=== PATIENT | female | born 1995 | race African-American/Black ===

== ENCOUNTER 2024-07-15 11:46 | Outpatient (REF) | payer OTHER, SELFPAY ==
--- NOTE | ~2024-07-15 | XR_ITS ---
EXAMINATION: XR KNEE, RIGHT CLINICAL INFORMATION: M25.561 - Pain in right knee COMPARISON: None available. TECHNIQUE: Three views of the right knee. FINDINGS: The AP projection is somewhat obliqued. No fracture or joint effusion. Alignment is anatomic. Joint spaces are maintained. No abnormal soft tissue calcification. XR/XR knee RT 3V IMPRESSION: Normal right knee. Electronically signed by: Doyle Bravo MD 07/16/2024 02:07 PM [facility]
== END 2024-07-15 11:47 | disposition home or self-care (01) ==
LOC: HO.HOSX 11:46
PROVIDERS: Visit Provider Orthopaedic Surgery
DX: M25.561 Pain in right knee (principal)
CPT/HCPCS: 73562

== ENCOUNTER 2024-07-15 12:53 | Outpatient (AMB) | payer OTHER, SELFPAY ==
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
[2024-07-15 13:24] VITALS: BMI 32.1
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
== END 2024-07-15 13:44 | disposition home or self-care (01) ==
PROVIDERS: Visit Provider Orthopaedic Surgery
DX: S83.241A Other tear of medial meniscus, current injury, right knee, initial encounter (principal)
CPT/HCPCS: 99203; G2211

== ENCOUNTER → 2024-07-30 08:32 | Outpatient (BNV) | payer OTHER, SELFPAY | PROVIDERS: PCP Physician Assistant; Visit Provider Radiology Diagnostic Radiology | DX: M25.461 Effusion, right knee (principal) | CPT/HCPCS: 73721 ==

== ENCOUNTER 2024-07-30 09:02 | Outpatient (REF) | payer OTHER, SELFPAY ==
--- NOTE | ~2024-07-30 | MR_ITS ---
CLINICAL HISTORY: S83.241A - Other tear of medial meniscus, current injury, right knee, in... MR right knee without gadolinium Comparison: DX/SR - XR KNEE RT 3V - 07/15/24 13:16 EST Findings: No acute fracture or pathologic bone lesion. Lateral ventral trochlear prominence. Lateral patellar subluxation. Mild articular cartilage loss overlying the lateral patellar facet inferiorly. Small knee joint effusion. Moderate edema within the superolateral aspect of the infrapatellar fat pad. Anterior and posterior cruciate ligaments are intact. Collateral ligaments are intact. No disruption of the patellar retinacula or iliotibial band. Quadriceps, patellar, popliteus, and flexor tendons are intact. Mild ill-defined T2 signal elevation at the posterior meniscocapsular junction of the posterior horn medial meniscus. Lateral meniscus is intact. IMPRESSION: 1. Findings consistent with lateral patellofemoral friction syndrome in the appropriate clinical setting. 2. No internal derangement. 3. Small knee joint effusion. This document has been electronically signed by: Arleen Frost MD on 07/30/2024 15:49:06
--- OUTSIDE RECORDS SUMMARY | 2024-07-30 10:25 | XMS_ITS | Clinical Summary ---
Author Organization [facility] Address [address] [place] [address] Care Team Providers Care Supervisor Kennel Name Role Phone Castillo Olivier Primary Care Provider [phone] Source Comments PLEASE NOTE, if this patient is a minor, it may be UNLAWFUL to discuss sensitive information that is contained in these records (such as FAMILY PLANNING, MENTAL HEALTH or SUBSTANCE ABUSE) with the minor patient's parent or other person without the patient's specific authorization.[facility] Allergies Active Allergy Reactions Criticality Noted Date Comments Bee Pollen Hives High 02/01/2021 Cats 10/04/2022 Dogs 10/04/2022 Dust Mites 10/04/2022 Grass Pollen 10/04/2022 Mold 10/04/2022 Sea Ronceverte 10/04/2022 Medications diphenhydrAMINE HCL (BENADRYL) 25 mg capsuleIndicatio ns:Allergy, initial encounter Take 1 Capsule by mouth every 6 (six) hours as needed for allergies, anaphylaxis or itching 30 Capsule 1 1 Active cholecalciferol, vitamin D3, 50 mcg (2,000 unit) capsuleIndicatio ns:Low vitamin D level Take 1 Capsule by mouth once daily Start taking this once daily after finishing the 8 week course 90 Capsule 1 Active cholecalciferol, vitamin D3, (VITAMIN D3) 1,250 mcg (50,000 unit) capsuleIndicatio ns:Low vitamin D level TAKE 1 CAPSULE BY MOUTH ONE TIME PER WEEK FOR 8 DOSES 4 Capsule 1 Active TRELEGREG ELLIPTA 200-62.5-25 mcg dsdvIndications: Moderate persistent asthma without complication Take 1 Puff by mouth daily. 3 Active cetirizine (ZYRTEC) 10 mg tabletIndication s:Moderate persistent asthma without complication Take 1 Tablet by mouth 1 to 2 (one to two) times daily as needed for allergies or rhinitis 30 Tablet 1 3 Active famotidine (PEPCID) 20 mg tabletIndication s:Gastroesophage al reflux disease without esophagitis Take 1 Tablet by mouth 1 to 2 (one to two) times daily as needed for heartburn 30 Tablet 1 3 Active meloxicam (MOBIC) 15 mg tabletIndication s:Arthralgia, unspecified joint Take 1 Tablet by mouth 1 time each day 30 Tablet 3 3 Active Bifidobacterium infantis (ALIGN DAILY) 4 mg capsuleIndicatio ns:Other constipation Take 1 Capsule by mouth once daily 14 Capsule 4 Active psyllium seed, with dextrose, (METAMUCIL) powderIndication s:Other constipation Take 3 g of fiber by mouth once daily 368 g 4 Active albuterol-budeso nide 90-80 mcg/actuation HFAA Inhale into the lungs 4 Active methocarbamoL (ROBAXIN) 750 mg tabletIndication s:Chronic pain of both shoulders,Lumbar pain Take 1 Tablet by mouth 2 (two) times daily as needed for other reason (muscle spasm) 21 Tablet 4 Active albuterol HFA 90 mcg/actuation inhalerIndicatio ns:Moderate persistent asthma without complication,Mil d intermittent asthma without complication,All ergy, initial encounter Inhale 2 Puffs into the lungs every 4 to 6 (four to six) hours as needed for shortness of breath 1 Each 2 4 Active levocetirizine (XYZAL) 5 mg tabletIndication s:Moderate persistent asthma without complication,Mil d intermittent asthma without complication,All ergy, initial encounter Take 1 Tablet by mouth every evening 90 Tablet 2 4 Active montelukast (SINGULAIR) 10 mg tabletIndication s:Moderate persistent asthma without complication,Mil d intermittent asthma without complication,All ergy, initial encounter Take 1 Tablet by mouth nightly at bedtime 60 Tablet 1 4 Active EPINEPHrine (EPIPEN) 0.3 mg/0.3 mL pen injectorIndicati ons:Moderate persistent asthma without complication,Mil d intermittent asthma without complication,All ergy, initial encounter Inject 0.3 mL into the muscle as needed for anaphylaxis 1 Each 1 4 Active Active Problems Problem Noted Date Diagnosed Date Class 1 obesity 01/29/2024 Moderate persistent asthma without complication 03/31/2021 Resolved Problems Problem Noted Date Diagnosed Date Resolved Date Attention deficit 07/28/2015 07/25/2019 Overview (07/28/2015): [address]- Neuropsychological evaluation referred by [facility] center RUQ pain 05/26/2014 07/25/2019 Knee pain, bilateral 05/25/2014 020 Overview (10/04/2014): [facility] 06/17/14: Localized distal L quadriceps tendinosis at insertion site on the patella. Otherwise normal appearance to quadriceps tendon bilaterally. Normal sonographic appearance to patellar tendon. Small right effusion. - PT [facility]: Pt only showed up once in 2013 - Dr. [facility], recommended Glucosamine, referred to PT Finger injury 07/25/2019 Overview (10/31/2013): Old injury R 4th digital w/ bony deformity Encounters Date Type Department Care Team Description 06/12/2024 9:40 AM EST Office Visit [address] [phone] Castillo Olivier PA Routine adult health maintenance (Primary Dx); Moderate persistent asthma without complication; Class 1 obesity; Cervical cancer screening; Mild intermittent asthma without complication; Allergy, initial encounter 06/12/2024 Travel from Last 3 Months Immunizations Name Administration Dates Next Due DTAP (DAPTACEL),5 PERTUSSIS ANTIGENS ,10/29/1996,07/27/1995,05/09,02/20/1995 HEP B, PED/ADOL 10/29/1996,01/24/1995,1994 HPV, QUADRIVALENT 12/07/2009,08/09/2009,05/17/20 09 Hib (PRP-T) 10/29/1996, 6,05/09/1995,02/20 History Of Varicella 05/16/1997 INFLUENZA, SEASONAL, INJECTABLE 07/10/2016,08/03,07/12/2010 IPV 03/31/2000, 0,07/27/1995,05/09,02/20/1995 MENINGOCOCCAL VACCINE,CONJUG ATE (NON-INTERFACE) 08/03/2011 MMR (MMR II/Priorix) 02/29/2000,10/29/1996 Novel [id number], injectable 05/17/2009 PPD 07/10/2016,12/27/2012 TDAP 06/12/2024,03/14/2007 Td (adult), 5 Lf tetanus tox oid, preservative free 10/30/2013 Family History Medical History Relation Name Comments Asthma Brother Alcohol/Drug Abuse Father Asthma Maternal Aunt Diabetes Maternal Aunt Hypertension Maternal Aunt Vision Problems Maternal Aunt Alcohol/Drug Abuse Maternal Grandfather Alcohol/Drug Abuse Maternal Grandmother Arthritis Maternal Grandmother Cancer Maternal Grandmother Diabetes Maternal Grandmother Hypertension Maternal Grandmother Vision Problems Maternal Grandmother Alcohol/Drug Abuse Mother Depression Mother High Cholesterol Mother Asthma Sister Relation Name Status Comments Brother Father Maternal Aunt Maternal Grandfather Maternal Grandmother Mother Sister Social History Tobacco Use Types Packs/Day Years Used Date Smoking Tobacco: Never Smokeless Tobacco: Never Tobacco Cessation:Counseling Given: Not Answered Alcohol Use Standard Drinks/Week Comments Yes 0 (1 standard drink = 0.6 oz pur e alcohol) Social Connections Answer Date Recorded Connectedness 1 01/29/2024 Financial Resource Strain Answer Date R ecorded Financial Resource Strain 1 2023 Stress Answer Date Recorded Stress 1 01/29/2024 Physical Activity Answer Date Recorded Physical Activity 0 02/22/2019 Food Insecurity Answer Date Recorded Food 1 01/29/2024 Transportation Needs Answer Date Record ed Transportation 0 10/04/2022 Housing Stability Answer Date Recorded Housing 1 01/29/2024 Safety and Environment Answer Date Ravi rded Safety 0 10/04/2022 Utilities Answer Date Recorded Utilities 1 01/29/2024 Employment Answer Date Recorded Stress 0 09/19/2021 Comments No Sex and Gender Information Value Date Recorded Sex Assigned at Female 07/25/2019 7:39 AM PST Legal Sex Female 11:36 AM PDT Gender Identity Female 07/25/2019 7:39 AM PST Sexual Orientation Lesbian 03/31/2021 6: 13 AM PDT Sexual Orientation Straight 03/31/2021 6: 13 AM PDT Last Filed Vital Signs Vital Sign Reading Time Taken Comments Blood Pressure 120/76 06/12/2024 9:48 AM EST Pulse 68 06/12/2024 9:48 AM EST Temperature 37.2 ??C (99 ??F) 06/12/2024 9:48 AM EST Respiratory Rate 16 06/12/2024 9:48 AM EST Oxygen Saturation 97% 06/12/2024 9:48 AM EST Inhaled Oxygen Concentration - - Weight 86.5 kg (190 lb 11.2 oz) 06/12/2024 9:48 AM EST Height 162.6 cm (5' 4 ) 06/12/2024 9:48 AM EST Body Mass Index 32.73 06/12/2024 9:48 AM EST Plan of Treatment Upcoming Encounters Date Type Department Care Team (Late st Contact Info) Description 08/22/2024 2:00 PM EST Office Visit [facility] [address] [place] [phone] Jovanni Aparicio MD [address] [place] [address] Health Maintenance Due Date Last Done Comments HPV Screening 1994 Pap + HPV 1994 Imm-Pneumococcal (1 of 2 - PCV) 2013 Diabetes Screening 03/31/2024 03/31/2021, 0 07/25/2019, 07/25/2019, Additional history exists Cervical Cancer Screening 06/02/2024 Pap Smear 06/02/2024 06/02/2021 Alcohol and Drug Screen 07/02/2024 01/29/20 24, 10/04/2022, 10/04/2022, Additional history exists Depression Annual Screen 07/02/2024 024, 07/28/2015, 05/25/2014 (Declined) [id number] ( season) 2024 Postponed from 03/02/2024 (Patient postponement) Imm-Influenza (#1) 2024 07/10/2016, 0 07/28/2015, 05/25/2014 (Declined), Additional history exists Postponed from 03/02/2024 (Patient postponement) Relationship Safety Screening/Counseling 01/28/2025 01/29/2024, 10/04/2022, 10/04/2022, Additional history exists Annual Preventive Care Visit 06/12/2025 06/12/2024, 10/04/2022, 03/31/2021, Additional history exists Hypertension Screening (#1) 06/12/2025 Tobacco Screening 06/12/2025 06/12/2024, 03/31/2021 Lipid Screening 10/04/2025 10/04/2022, 03/04, 07/25/2019 Imm-DTaP/Tdap/Td (9 - Td or Tdap) 06/12/2034 06/12/2024, 10/30/2013, 03/14/2007, Additional history exists Imm-Hepatitis B Completed 10/29/1996, 12/31, 1994 HIV Screening Completed 03/31/2021, 07/25/2019 Hepatitis C Screening Completed 03/31/2021 Cervical Ablation/Cold-Knife Conization Discontinued Cervical Cryotherapy Discontinued Colposcopy Discontinued Endometrial Biopsy Discontinued Excision/Leep Discontinued HPV Genotyping Discontinued Vaginal Pap Discontinued Vulvoscopy Discontinued Procedures Procedure Name Priority Date/Time Associated Diagnosis Comments LIPID PANEL Routine 10/04/2022 2:54 PM EDT Class 1 obesity without serious comorbidity with body mass index (BMI) of 32.0 to 32.9 in adult, unspecified obesity type Routine adult health maintenance THIN PREP PAP W/RFLX HPV RNA E6/E7 (Q) Routine 06/02/2021 11:23 AM EST Cervical cancer screening HIV 1/2 AG & AB W/RFLX (4TH GEN) Routine 03/31/2021 9:39 AM EDT Screening for viral disease HEPATITIS C AB W/RFLX HCV RNA, QT, RT PCR Routine 03/31/2021 9:39 AM EDT Screening for viral disease COMPREHENSIVE METABOLIC PANEL Routine 03/31/2021 9:39 AM EDT Class 1 obesity without serious comorbidity with body mass index (BMI) of 32.0 to 32.9 in adult, unspecified obesity type from Last 3 Months or Most Recently Relevant to Health Maintenance Results * (ABNORMAL) LIPID PANEL (10/04/2022 2:54 PM EDT) [facility] CHOLESTEROL, TOTAL 255(H) <200 mg/dL [employer] [facility] HDL CHOLESTEROL 48(L) > OR = 50 mg/dL [employer] [facility] TRIGLYCERIDES 273(H) <150 mg/dL [employer] [facility] Comment: If a non-fasting specimen was collected, consider repeat triglyceride testing on a fasting specimen if clinically indicated. Sunil et al. J. of Clin. Lipidol. 2015;9:129-169. LDL-CHOLESTEROL 162(H) 99 mg/dL (calc) [employer] [facility] Comment: Reference range: <100 Desirable range <100 mg/dL for primary prevention; ?? <70 mg/dL for patients with CHD or diabetic patients with > or = 2 CHD risk factors. LDL-C is now calculated using the Victor Manuel-Montgomery calculation, which is a validated novel method providing better accuracy than the Friedewald equation in the estimation of LDL-C. Victor Manuel SS et al. GINNY. 2013;310(19): 5183-4488 (http://education.Simply Pasta [employer] More/faq/VZO109) CHOL/HDLC RATIO 5.3(H) <5.0 (calc) [employer] [facility] NON-HDL CHOLESTEROL 207(H) <130 mg/dL (calc) [employer] [facility] Comment: For patients with diabetes plus 1 major ASCVD risk factor, treating to a non-HDL-C goal of <100 mg/dL (LDL-C of <70 mg/dL) is considered a therapeutic option. Blood Blood / Unknown 10/04/2022 2 :54 PM EDT 10/04/2022 2:54 PM EDT [facility] - BLOOD DRAW Final Result Performing Organization Address [facility]/ZIP Co de Phone Number [employer] [address] [address], [employer] [address] [address] * THIN PREP PAP W/RFLX HPV RNA E6/E7 (Q) (06/02/2021 11:23 AM EST) CLINICAL INFORMATION See Note [employer] Comment:ROUTINE EXAM LMP See Note [employer] Comment:[id number] PREV. PAP See Note [employer] Comment:NONE GIVEN PREV. BX See Note [employer] Comment:NONE GIVEN SOURCE See Note [employer] Comment:Cervix STATEMENT OF ADEQUACY See Note [employer] Comment: Satisfactory for evaluation. Endocervical/transformation zone component present. INTERPRETATION/RESU LT See Note [employer] Comment:Negative for intraep ithelial lesion or malignancy. 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 It is not a diagnostic test and is subject to false negative and false positive results. It is most reliable when a satisfactory sample, regularly obtained, is submitted with relevant clinical findings and history, and when the Pap result is evaluated along with historic and current clinical information. Nelli Barnes SUSTAINABILITY OFFICER-C LAB - NO BLOOD DRAW Final Re sult Performing Organization Address [facility]/ZIP Co de Phone Number [employer] [address] [address], [employer] [place] [employer] [address] [address] * HEPATITIS C AB W/RFLX HCV RNA, QT, RT PCR (03/31/2021 9:39 AM EDT) HEPATITIS C ANTIBODY NON-REACT SILVIA NON-REACT SILVIA [employer] [facility] SIGNAL TO CUT-OFF 0.01 <1.00 [employer] Comment: HCV antibody was non-reactive. There is no laboratory evidence of HCV infection. In most cases, no further action is required. However, if recent HCV exposure is suspected, a test for HCV RNA (test code 99914) is suggested. For additional information please refer to http://[employer].Mobi/faq/AVM96l0 (This link is being provided for informational/ educational purposes only.) Blood Blood / Unknown 03/31/2021 9 :39 AM EDT 03/31/2021 9:41 AM EDT Nelli Barnes SUSTAINABILITY OFFICER-C LAB - BLOOD DRAW Edited Resu lt - Final [employer] [facility] [address] [address], [employer] [facility] [address] [address] * HIV 1/2 AG & AB W/RFLX (4TH GEN) (03/31/2021 9:39 AM EDT) Pathologist [facility] HIV AG/AB, 4TH GEN NON-REAC TIVE NON-REAC TIVE [employer] [facility] Comment: HIV-1 antigen and HIV-1/HIV-2 antibodies were not detected. There is no laboratory evidence of HIV infection. PLEASE NOTE: This information has been disclosed to you from records whose confidentiality may be protected by state law. ??If your state requires such protection, then the state law prohibits you from making any further disclosure of the information without the specific written consent of the person to whom it pertains, or as otherwise permitted by law. A general authorization for the release of medical or other information is NOT sufficient for this purpose. ?? For additional information please refer to http://[employer].Mobi/faq/GBP263 (This link is being provided for informational/ educational purposes only.) The performance of this assay has not been clinically validated in patients less than 2 years old. Blood Blood / Unknown 03/31/2021 9 :39 AM EDT 03/31/2021 9:41 AM EDT Nelli Barnes SUSTAINABILITY OFFICER-C LAB - BLOOD DRAW Final Resul t [facility] [facility] [address] [address], [employer] [facility] [address] [address] * COMPREHENSIVE METABOLIC PANEL (03/31/2021 9:39 AM EDT) GLUCOSE 80 65 - 99 mg/dL [employer] Comment: ?Fasting reference interval UREA NITROGEN (BUN) 11 7 - 25 mg/dL [facility] CREATININE (blood) 0.87 0.50 - 1.10 mg/dL [facility] GFR ESTIMATED 92 > OR = 60 mL/min/1 .73m2 [facility] EGFR 107 > OR = 60 mL/min/1 .73m2 [facility] BUN/CREATININE RATIO NOT APPLICABLE 6 - 22 [facility] SODIUM 135 135 - 146 mmol/L [facility] POTASSIUM 4.4 3.5 - 5.3 mmol/L [facility] CHLORIDE 102 98 - 110 mmol/L [facility] CARBON DIOXIDE 25 20 - 32 mmol/L [facility] CALCIUM 9.7 8.6 - 10.2 mg/dL [facility] PROTEIN, TOTAL 7.6 6.1 - 8.1 g/dL [facility] ALBUMIN 4.4 3.6 - 5.1 g/dL [facility] GLOBULIN 3.2 1.9 - 3.7 g/dL (calc) [facility] ALBUMIN/GLOBUL IN RATIO 1.4 1.0 - 2.5 (calc) [facility] BILIRUBIN, TOTAL 0.3 0.2 - 1.2 mg/dL [facility] ALKALINE PHOSPHATASE 51 31 - 125 U/L [facility] AST 16 10 - 30 U/L [facility] ALT 16 6 - 29 U/L [facility] Blood Blood / Unknown 03/31/2021 9 :39 AM EDT 03/31/2021 9:41 AM EDT Nelli Barnes SUSTAINABILITY OFFICER-C LAB - BLOOD DRAW Edited Resu lt - Final [facility] 200 [facility] [address] [place] [address], [facility] [place] [facility] [address] [address] from Last 3 Months or Most Recently Relevant to Health Maintenance Insurance 3LM Member Subscriber Plan / Payer (Ef fective 2024-Present) Name:Adam Adamurmila Relation to Subscriber:Self Name:Adam Adamurmila Payer ID:[id number] Group ID:Not on file Type:Indemnity Address: [facility] [address] [place] [address] Care Teams Supervisor Kennel Relationship Specialty Start Date End Date Castillo Olivier PA [address] [place] [address] PCP - General FAMILY MEDICINEXIOMY 07/28/22
== END 2024-07-30 09:03 | disposition home or self-care (01) ==
LOC: HO.MRI 09:02
PROVIDERS: PCP Physician Assistant; Visit Provider Orthopaedic Surgery
DX: S83.241A Other tear of medial meniscus, current injury, right knee, initial encounter (principal)
CPT/HCPCS: 73721

== ENCOUNTER 2024-08-25 08:42 | Outpatient (AMB) | payer OTHER, SELFPAY ==
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
[2024-08-25 08:51] VITALS: BMI 32.1
--- OUTSIDE RECORDS SUMMARY | 2024-08-25 09:13 | XMS_ITS | Clinical Summary ---
Author Organization [facility] Address [address] [place] [address] Care Team Providers Care Tube Skiver Name Role Phone Castillo Olivier Primary Care Provider [phone] Source Comments PLEASE NOTE, if this patient [...] 10/04/2022 Grass Pollen 10/04/2022 Mold 10/04/2022 [place] 10/04/2022 Medications diphenhydrAMINE HCL (BENADRYL) 25 mg [...] FOR 8 DOSES 4 Capsule 1 Active TRELEGY ELLIPTA 200-62.5-25 mcg dsdvIndications: Moderate persistent asthma [...] [address]- Neuropsychological evaluation referred by [facility] center RUQ pain 05/26/2014 07/25/2019 Knee pain, bilateral 05/25/2014 020 Overview (10/04/2014): [facility] 06/17/14: Localized distal L quadriceps tendinosis at insertion site on the patella. Otherwise normal appearance to quadriceps tendon bilaterally. Normal sonographic appearance to patellar tendon. Small right effusion. - PT Rafael: Pt only showed up once in 2013 - Dr. [facility] 2014, recommended Glucosamine, referred to PT Finger injury 07/25/2019 Overview (10/31/2013): Old injury R 4th digital w/ bony deformity Encounters Date Type Department Care Team Description 06/12/2024 9:40 AM EST Office Visit [address] [id number] Castillo Olivier PA Routine adult health maintenance [...] (NON-INTERFACE) 08/03/2011 MMR (MMR II/Priorix) 02/29/2000,10/29/1996 Novel ylevodimu-[id number], injectable 05/17/2009 PPD 07/10/2016,12/27/2012 TDAP 06/12/2024,03/14/2007 Td [...] 06/12/2024 9:48 AM EST Plan of Treatment Health Maintenance Due Date Last Done Comments HPV Screening 1994 Pap + HPV 1994 Imm-Pneumococcal (1 of 2 - PCV) 2013 Diabetes Screening 03/31/2024 03/31/2021, 0 07/25/2019, 07/25/2019, Additional history exists Cervical Cancer Screening 06/02/2024 Pap Smear 06/02/2024 06/02/2021 Alcohol and Drug Screen 07/02/2024 01/29/20 24, 10/04/2022, 10/04/2022, Additional history exists Depression Annual Screen 07/02/2024 024, 07/28/2015, 05/25/2014 (Declined) [id number] ( season) 2024 Postponed from 03/02/2024 (Patient [...] Procedure Name Priority Date/Time Associated Diagnosis Comments IMAGING SCANNED DOCUMENT 07/30/2024 3:00 AM EST IMAGING SCANNED DOCUMENT 07/30/2024 3:00 AM EST LIPID PANEL Routine 10/04/2022 2:54 PM EDT [...] Recently Relevant to Health Maintenance Results * IMAGING SCANNED DOCUMENT (07/30/2024 3:00 AM EST) Only the most recent of2 resultswithin the time period is included. 07/30/2024 3:00 AM EST Castillo Olivier PA SCAN IMAGING Final Result * (ABNORMAL) LIPID PANEL (10/04/2022 2:54 PM EDT) CHOLESTEROL, TOTAL 255(H) <200 mg/dL [employer] HDL CHOLESTEROL 48(L) > OR = 50 mg/dL [employer] [facility] TRIGLYCERIDES 273(H) <150 mg/dL [employer] [facility] Comment: If a non-fasting specimen was collected, consider repeat triglyceride testing on a fasting specimen if clinically indicated. Sunil et al. J. of Clin. Lipidol. 2015;9:129-169. LDL-CHOLESTEROL 162(H) 99 mg/dL (calc) [employer] [facility] [facility] Comment: Reference range: <100 Desirable range <100 mg/dL for primary prevention; ?? <70 mg/dL for patients with CHD or diabetic patients with > or = 2 CHD risk factors. LDL-C is now calculated using the Victor Manuel-Ulises calculation, which is a validated novel method providing better accuracy than the Friedewald equation in the estimation of LDL-C. Victor Manuel SS et al. GINNY. 2013;310(19): 7001-5308 (http://education.Sedimap/faq/ESP201) CHOL/HDLC RATIO 5.3(H) <5.0 (calc) [employer] [facility] [facility] NON-HDL CHOLESTEROL 207(H) <130 mg/dL (calc) [employer] [facility] [facility] Comment: For patients with diabetes plus 1 major ASCVD risk factor, treating to a non-HDL-C goal of <100 mg/dL (LDL-C of <70 mg/dL) is considered a therapeutic option. Blood Blood / Unknown 10/04/2022 2 :54 PM EDT 10/04/2022 2:54 PM EDT Castillo STAUFFER LAB - BLOOD DRAW Final Result Performing Organization Address City/[facility]/ZIP Co de Phone Number [employer] [address] [address], [facility] [address] [address] * THIN PREP PAP W/RFLX HPV RNA E6/E7 (Q) (06/02/2021 11:23 AM EST) CLINICAL INFORMATION See Note [employer] Comment:ROUTINE EXAM LMP See Note [employer] Comment:[id number] PREV. PAP See Note [employer] Comment:NONE GIVEN PREV. BX See Note [employer] Comment:NONE GIVEN SOURCE See Note [employer] Comment:Cervix STATEMENT OF ADEQUACY See Note [employer] Comment: Satisfactory for evaluation. Endocervical/transformation zone component present. INTERPRETATION/RESU LT See Note [employer] Comment:Negative for intraep ithelial lesion or malignancy. 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 Nelli RAMESHP-C LAB - NO BLOOD DRAW Final Re sult Performing Organization Address [facility]/ZIP Co de Phone Number [employer] [address] [address], [facility] [address] [address] * HEPATITIS C AB W/RFLX HCV RNA, QT, RT PCR (03/31/2021 9:39 AM EDT) HEPATITIS C ANTIBODY NON-REACT SILVIA NON-REACT SILVIA [facility] SIGNAL TO CUT-OFF 0.01 <1.00 [employer] Comment: HCV antibody was non-reactive. There is no laboratory evidence of HCV infection. In most cases, no further action is required. However, if recent HCV exposure is suspected, a test for HCV RNA (test code 13201) is suggested. For additional information please refer to http://EnergyUSA Propane.Petco/faq/RYG41l0 (This link is being provided for informational/ educational purposes only.) Blood Blood / Unknown 03/31/2021 9 :39 AM EDT 03/31/2021 9:41 AM EDT Nelli Barnes COMMERCIAL ASSISTANT-C LAB - BLOOD DRAW Edited Resu lt - Final [employer] [facility] [address] [address], [facility] [address] [address] * HIV 1/2 AG & AB W/RFLX (4TH GEN) (03/31/2021 9:39 AM EDT) HIV AG/AB, 4TH GEN NON-REAC TIVE NON-REAC TIVE [facility] Comment: HIV-1 antigen and HIV-1/HIV-2 antibodies [...] ?? For additional information please refer to http://[employer] Prop[employer].Petco/faq/EDY916 (This link is being provided for informational/ educational purposes only.) The performance of this assay has not been clinically validated in patients less than 2 years old. Blood Blood / Unknown 03/31/2021 9 :39 AM EDT 03/31/2021 9:41 AM EDT Nelli Barnes COMMERCIAL ASSISTANT-C LAB - BLOOD DRAW Final Resul t [facility] [address] [address], [facility] [address] [address] * COMPREHENSIVE METABOLIC PANEL (03/31/2021 9:39 AM EDT) GLUCOSE 80 65 - 99 mg/dL [facility] Comment: ?Fasting reference interval UREA NITROGEN (BUN) 11 7 - 25 mg/dL [facility] CREATININE (blood) 0.87 0.50 - 1.10 mg/dL [facility] GFR ESTIMATED 92 > OR = 60 mL/min/1 .73m2 [facility] EGFR 107 > OR = 60 mL/min/1 .73m2 [facility] BUN/CREATININE RATIO NOT APPLICABLE 6 - 22 [facility] SODIUM 135 135 - 146 mmol/L [facility] POTASSIUM 4.4 3.5 - 5.3 mmol/L [facility] CHLORIDE 102 98 - 110 mmol/L [facility] CARBON DIOXIDE 25 20 - 32 mmol/L [facility] CALCIUM 9.7 8.6 - 10.2 mg/dL [facility] PROTEIN, TOTAL 7.6 6.1 - 8.1 g/dL [facility] ALBUMIN 4.4 3.6 - 5.1 g/dL [facility] GLOBULIN 3.2 1.9 - 3.7 g/dL (calc) [facility] ALBUMIN/GLOBUL IN RATIO 1.4 1.0 - 2.5 (calc) [facility] BILIRUBIN, TOTAL 0.3 0.2 - 1.2 mg/dL [facility] ALKALINE PHOSPHATASE 51 31 - 125 U/L [facility] AST 16 10 - 30 U/L [facility] ALT 16 6 - 29 U/L [employer] [facility] [facility] Blood Blood / Unknown 03/31/2021 9 :39 AM EDT 03/31/2021 9:41 AM EDT Nelli Barnes COMMERCIAL ASSISTANT-C LAB - BLOOD DRAW Edited Resu lt - Final [facility] [place] [employer] [address] [address], [facility] [address] [address] from Last 3 Months or Most Recently Relevant to Health Maintenance Insurance [employer] Member Subscriber Plan / Payer (Ef fective 2024-Present) Name:Adam Adamurmila Relation to Subscriber:Self Name:Adam Adamurmila Payer ID:[id number] Group ID:Not on file Type:Indemnity Address: [facility] [address] [place] [address] Care Teams Tube Skiver Relationship Specialty Start Date End Date Castillo Olivier PA [address] [place] [address] PCP - General FAMILY MEDICINE PA 07/28/22
== END 2024-08-25 09:00 | disposition home or self-care (01) ==
PROVIDERS: PCP Physician Assistant; Visit Provider Orthopaedic Surgery
DX: M25.561 Pain in right knee (principal); Z04.3 Encounter for examination and observation following other accident
CPT/HCPCS: 99213; G2211

== ENCOUNTER 2024-09-29 14:51 | Outpatient (AMB) | payer OTHER, SELFPAY ==
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
--- OUTSIDE RECORDS SUMMARY | 2024-09-29 16:47 | XMS_ITS | Clinical Summary ---
Author Organization [facility] Address [address] [place] [address] Care Team Providers Care Technical Sales Support Specialist Name Role Phone Castillo Olivier Primary Care Provider [phone] Source Comments PLEASE NOTE, if this patient [...] 10/04/2022 Grass [place] 10/04/2022 Mold 10/04/2022 [place] 10/04/2022 Medications diphenhydrAMINE HCL (BENADRYL) 25 mg [...] [address]- Neuropsychological evaluation referred by [facility] center RUQ pain 05/26/2014 07/25/2019 Knee [...] injury R 4th digital w/ bony deformity Immunizations Immunization Administration Dates Next Due DTAP (DAPTACEL),5 PERTUSSIS ANTIGENS ,10/29/1996,07/27/1995,05/09,02/20/1995 HEP B, PED/ADOL 10/29/1996,01/24/1995,1994 HPV, QUADRIVALENT 12/07/2009,08/09/2009,05/17/20 09 Hib (PRP-T) 10/29/1996, 6,05/09/1995,02/20 History Of Varicella 05/16/1997 INFLUENZA, SEASONAL, INJECTABLE 07/10/2016,08/03,07/12/2010 IPV 03/31/2000, 0,07/27/1995,05/09,02/20/1995 MENINGOCOCCAL VACCINE,CONJUG ATE (NON-INTERFACE) 08/03/2011 MMR (MMR II/Priorix) 02/29/2000,10/29/1996 Novel ipsxyvnjh-C2H8-10, injectable 05/17/2009 PPD 07/10/2016,12/27/2012 TDAP 06/12/2024,03/14/2007 Td [...] Care Team (Late st Contact Info) Description 10/14/2024 10:00 AM EDT Office Visit [facility] [address] [place] [address] Jovanni Aparicio MD [address] [place] [address] Health Maintenance Due Date Last Done Comments Anxiety Screening 1994 HPV Screening 1994 Pap + HPV 1994 Imm-Pneumococcal (1 of 2 - PCV) 2013 Diabetes Screening 03/31/2024 03/31/2021, 0 07/25/2019, 07/25/2019, Additional history exists Cervical Cancer Screening 06/02/2024 Pap Smear 06/02/2024 06/02/2021 Alcohol and Drug Screen 07/02/2024 01/29/20 24, 10/04/2022, 10/04/2022, Additional history exists Depression Annual Screen 07/02/2024 024, 07/28/2015, 05/25/2014 (Declined) [id number]-33 ( season) 2024 Postponed from 03/02/2024 (Patient [...] Procedure Name Priority Date/Time Associated Diagnosis Comments REFERRAL SCANNED DOCUMENT 08/26/2024 3:00 AM EST REFERRAL SCANNED DOCUMENT 08/25/2024 3:00 AM EST IMAGING SCANNED DOCUMENT 07/30/2024 [...] Recently Relevant to Health Maintenance Results * REFERRAL SCANNED DOCUMENT (08/26/2024 3:00 AM EST) Only the most recent of2 resultswithin the time period is included. 08/26/2024 3:00 AM EST Nelli Barnes PUTTY TINTER MAKER-C SCAN REFERRAL Final Result * IMAGING SCANNED DOCUMENT (07/30/2024 3:00 AM EST) Only the most recent of2 resultswithin the time period is included. 07/30/2024 3:00 AM EST Castillo Olivier PA SCAN IMAGING Final Result * (ABNORMAL) LIPID PANEL (10/04/2022 2:54 PM EDT) CHOLESTEROL, TOTAL 255(H) <200 mg/dL [facility] HDL CHOLESTEROL 48(L) > OR = 50 mg/dL [facility] TRIGLYCERIDES 273(H) <150 mg/dL [facility] Comment: If a non-fasting specimen was collected, consider repeat triglyceride testing on a fasting specimen if clinically indicated. Sunil et al. J. of Clin. Lipidol. 2015;9:129-169. LDL-CHOLESTEROL 162(H) 99 mg/dL (calc) [facility] Comment: Reference range: <100 Desirable range <100 mg/dL for primary prevention; ?? <70 mg/dL for patients with CHD or diabetic patients with > or = 2 CHD risk factors. LDL-C is now calculated using the Jane calculation, which is a validated novel method providing better accuracy than the Friedewald equation in the estimation of LDL-C. Victor Manuel SHEPPARD et al. GINNY. 2013;310(19): 8594-5444 (http://education.NanoOpto/faq/FMK463) CHOL/HDLC RATIO 5.3(H) <5.0 (calc) [employer] NON-HDL CHOLESTEROL 207(H) <130 mg/dL (calc) [employer] Comment: For patients with diabetes plus 1 major ASCVD risk factor, treating to a non-HDL-C goal of <100 mg/dL (LDL-C of <70 mg/dL) is considered a therapeutic option. Blood Blood / Unknown 10/04/2022 2 :54 PM EDT 10/04/2022 2:54 PM EDT us Castillo STAUFFER LAB - BLOOD DRAW Final Result [employer] [address] [place] [address], [employer] [address] [place] [phone] * THIN PREP PAP W/RFLX HPV RNA E6/E7 (Q) (06/02/2021 11:23 AM EST) CLINICAL INFORMATION See Note [employer] Comment:ROUTINE EXAM LMP See Note [employer] Comment:[id number] PREV. PAP See Note [employer] Comment:NONE GIVEN PREV. BX See Note [employer] Comment:NONE GIVEN SOURCE See Note [employer] Comment:Cervix STATEMENT OF ADEQUACY See Note [employer] Comment: Satisfactory for evaluation. Endocervical/transformation zone component present. INTERPRETATION/RESU LT See Note [employer] Comment:Negative for intraep ithelial lesion or malignancy. CONTENT EDITOR See Note [facility] [employer] Comment: JNA, CT(ASCP) CT screening location: [address] ??[address] COMMENT [employer] CYTOLOGY Cervix uteri structure / Unknown 06/02/2021 11:23 AM EST 06/03/2021 5:27 AM EST Narrative [employer] - 06/03/2021 8:37 PM EST EXPLANATORY NOTE: [...] DRAW Final Re sult Performing Organization Address [facility] de Phone Number [employer] [facility] [address] [address], [facility] [employer] [address] [address] * HEPATITIS C AB W/RFLX HCV RNA, QT, RT PCR (03/31/2021 9:39 AM EDT) Pathologist [facility] HEPATITIS C ANTIBODY NON-REACT SILVIA NON-REACT SILVIA [facility] SIGNAL TO CUT-OFF 0.01 <1.00 [employer] Comment: HCV antibody was non-reactive. There is no laboratory evidence of HCV infection. In most cases, no further action is required. However, if recent HCV exposure is suspected, a test for HCV RNA (test code 83888) is suggested. For additional information please refer to http://education.Xylo, Inc/faq/ZQZ22u0 (This link is being provided for informational/ educational purposes only.) Blood Blood / Unknown 03/31/2021 9 :39 AM EDT 03/31/2021 9:41 AM EDT Nelli Padillaa [facility]-C LAB - BLOOD DRAW Edited Resu lt - Final Performing Organization Address [facility] Co de Phone Number [employer] [facility] [address] [address], [employer] [address] [address] * HIV 1/2 AG & AB W/RFLX (4TH GEN) (03/31/2021 9:39 AM EDT) Pathologist [facility] HIV AG/AB, 4TH GEN NON-REAC TIVE NON-REAC TIVE [facility] Comment: HIV-1 antigen and HIV-1/HIV-2 antibodies [...] ?? For additional information please refer to http://education.Xylo, Inc/faq/MKX924 (This link is being provided for informational/ educational purposes only.) The performance of this assay has not been clinically validated in patients less than 2 years old. Blood Blood / Unknown 03/31/2021 9 :39 AM EDT 03/31/2021 9:41 AM EDT Nelli Barnes PUTTY TINTER MAKER-C LAB - BLOOD DRAW Final Resul t [employer] [facility] [address] [address], [facility] [address] [address] * COMPREHENSIVE METABOLIC PANEL (03/31/2021 9:39 AM EDT) GLUCOSE 80 65 - 99 mg/dL [facility] Comment: ?Fasting reference interval UREA NITROGEN (BUN) 11 7 - 25 mg/dL [employer] CREATININE (blood) 0.87 0.50 - 1.10 mg/dL [employer] GFR ESTIMATED 92 > OR = 60 mL/min/1 .73m2 [employer] [facility] [employer] EGFR 107 > OR = 60 mL/min/1 .73m2 [employer] BUN/CREATININE RATIO NOT APPLICABLE 6 - 22 [employer] SODIUM 135 135 - 146 mmol/L [employer] POTASSIUM 4.4 3.5 - 5.3 mmol/L [employer] CHLORIDE 102 98 - 110 mmol/L [employer] CARBON DIOXIDE 25 20 - 32 mmol/L [employer] CALCIUM 9.7 8.6 - 10.2 mg/dL [employer] PROTEIN, TOTAL 7.6 6.1 - 8.1 g/dL [employer] ALBUMIN 4.4 3.6 - 5.1 g/dL [facility] GLOBULIN 3.2 1.9 - 3.7 g/dL (calc) [facility] [place] [employer] ALBUMIN/GLOBUL IN RATIO 1.4 1.0 - 2.5 (calc) [facility] [place] [employer] BILIRUBIN, TOTAL 0.3 0.2 - 1.2 mg/dL [facility] ALKALINE PHOSPHATASE 51 31 - 125 U/L [facility] AST 16 10 - 30 U/L [facility] ALT 16 6 - 29 U/L [facility] Blood Blood / Unknown 03/31/2021 9 :39 AM EDT 03/31/2021 9:41 AM EDT Nelli Barnes PUTTY TINTER MAKER-C LAB - BLOOD DRAW Edited Resu lt - Final [employer] [address] [address], [employer] [address],[facility] [place] [address] from Last 3 Months or Most Recently Relevant to Health Maintenance Insurance [email or web address] Member Subscriber Plan / Payer (Ef fective 2024-Present) Name:Adam Adamurmila Relation to Subscriber:Self Name:Angelaindy Adamurmila Payer ID:[id number] Group ID:Not on file Type:Indemnity Address: [facility] [address] [place] [address] Care Teams Technical Sales Support Specialist Relationship Specialty Start Date End Date Castillo Olivier PA [address] [place] [address] PCP - General FAMILY MEDICINEXIOMY 07/28/22
== END 2024-09-29 15:52 | disposition home or self-care (01) ==
PROVIDERS: PCP Physician Assistant; Visit Provider Orthopaedic Surgery
DX: M23.91 Unspecified internal derangement of right knee (principal)
CPT/HCPCS: 99213

== ENCOUNTER 2024-11-14 13:04 | Outpatient (RCR) | payer OTHER, SELFPAY ==
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
== END 2025-02-27 09:51 | disposition home or self-care (01) ==
LOC: HO.PTS 13:04
PROVIDERS: Visit Provider Orthopaedic Surgery
DX: M23.90 Unspecified internal derangement of unspecified knee (principal)
CPT/HCPCS: 97110; 97140; 97162

== ENCOUNTER 2025-01-30 13:35 | Outpatient (REF) | payer OTHER, SELFPAY ==
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
== END 2025-01-30 13:36 | disposition home or self-care (01) ==
LOC: HO.XRAY 13:35
PROVIDERS: PCP Physician Assistant; Visit Provider Chiropractor
DX: M25.531 Pain in right wrist (principal); M25.511 Pain in right shoulder; M79.641 Pain in right hand; M54.2 Cervicalgia
CPT/HCPCS: 72040; 73030; 73110; 73130

== ENCOUNTER → 2025-01-30 13:50 | Outpatient (BNV) | payer OTHER, SELFPAY | PROVIDERS: PCP Physician Assistant; Visit Provider Radiology Diagnostic Radiology | DX: M54.2 Cervicalgia (principal); M25.511 Pain in right shoulder; M25.531 Pain in right wrist; M79.641 Pain in right hand | CPT/HCPCS: 72040; 73030; 73110; 73130 ==

== ENCOUNTER 2025-02-09 14:43 | Outpatient (AMB) | payer OTHER, SELFPAY ==
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
--- OUTSIDE RECORDS SUMMARY | 2025-02-09 15:08 | XMS_ITS | Clinical Summary ---
Author Organization [facility] Address [address] [place] [address] Care Team Providers Care Carbon Sequestration Plant Manager Name Role Phone Castillo Olivier Primary Care Provider [phone] Source Comments PLEASE NOTE, if this patient [...] 10/04/2022 Grass Pollen 10/04/2022 Mold 10/04/2022 Sea Whiteclay 10/04/2022 Medications diphenhydrAMINE HCL (BENADRYL) 25 mg [...] mcg dsdvIndications: Moderate persistent asthma without complication (HHS-HCC) Take 1 Puff by mouth daily. 3 Active cetirizine (ZYRTEC) 10 mg tabletIndication s:Moderate persistent asthma without complication (HHS-HCC) Take 1 Tablet by mouth 1 to [...] 90 mcg/actuation inhalerIndicatio ns:Moderate persistent asthma without complication (HHS-HCC),Mild intermittent asthma without complication (HHS-HCC),Allerg y, initial encounter Inhale 2 Puffs into the lungs every 4 to 6 (four to six) hours as needed for shortness of breath 1 Each 2 4 Active levocetirizine (XYZAL) 5 mg tabletIndication s:Moderate persistent asthma without complication (HHS-HCC),Mild intermittent asthma without complication (HHS-HCC),Allerg y, initial encounter Take 1 Tablet by mouth every evening 90 Tablet 2 4 Active montelukast (SINGULAIR) 10 mg tabletIndication s:Moderate persistent asthma without complication (HHS-HCC),Mild intermittent asthma without complication (HHS-HCC),Allerg y, initial encounter Take 1 Tablet by mouth nightly at bedtime 60 Tablet 1 4 Active EPINEPHrine (EPIPEN) 0.3 mg/0.3 mL pen injectorIndicati ons:Moderate persistent asthma without complication (HHS-HCC),Mild intermittent asthma without complication (HHS-HCC),Allerg y, initial encounter Inject 0.3 mL into the muscle as needed for anaphylaxis 1 Each 1 4 Active cyclobenzaprine (FLEXERIL) 10 mg tablet 5 Active Active Problems Problem Noted Date Diagnosed Date Class 1 obesity 01/29/2024 Moderate persistent asthma without complication (HHS-HCC) 03/31/2021 Resolved Problems Problem Noted Date Diagnosed Date Resolved Date Attention deficit 07/28/2015 07/25/2019 Overview (07/28/2015): [address]- Neuropsychological evaluation referred by [facility] RUQ pain 05/26/2014 07/25/2019 Knee pain, bilateral [...] Encounters Date Type Department Care Team Description 12/01/2024 3:20 PM EDT Office Visit [facility] [address] [place] [address] Castillo Olivier PA 11/20/2024 Scan Urgent Care [facility] [address] [place] [phone] Castillo Olivier PA from Last 3 Months Immunizations Immunization Administration Dates Next Due DTAP (DAPTACEL),5 PERTUSSIS ANTIGENS ,10/29/1996,07/27/1995,05/09,02/20/1995 HEP B, PED/ADOL (BWEUMDZ-Y-WXOF/RECOMBIVAX-PEDS) 10/29/1996,01/24/1995,1994 HPV, QUADRIVALENT 12/07/2009,08/09/2009,05/17/20 09 Hib (PRP-T) 10/29/1996, 6,05/09/1995,02/20 History Of Varicella 05/16/1997 INFLUENZA, SEASONAL, INJECTABLE 07/10/2016,08/03,07/12/2010 IPV (IPOL) 03/31/2000, 0,07/27/1995,05/09,02/20/1995 MENINGOCOCCAL VACCINE,CONJUG ATE (NON-INTERFACE) 08/03/2011 MMR (MMR II/Priorix) 02/29/2000,10/29/1996 Novel [id number], injectable 05/17/2009 PPD 07/10/2016,12/27/2012 TDAP 06/12/2024,03/14/2007 Td (adult), 5 Lf tetanus tox oid (Tenivac), preservative free 10/30/2013 Family History Medical History [...] e alcohol) Social Connections Answer Date Recorded How often do you feel lonely or isolated from th ose around you? 1 01/29/2024 Financial Resource Strain Answer Date R ecorded How hard is it for you to pa y for the very basics like food, housing, heating, medical care, and medications? 1 01/28 Stress Answer Date Recorded Do you feel these kinds of stress these days? 1 01/29/2024 Physical Activity Answer Date Recorded Physical Activity 0 02/22/2019 Food Insecurity Answer Date Recorded Within the past 12 months, t he food you bought just didn't last and you didn't have enough money to get more. 1 01/29/20 Transportation Needs Answer Date Record ed Transportation 0 10/04/2022 Housing Stability Answer Date Recorded What is your housing situation today? 1 01/29/2024 Safety and Environment Answer Date Ravi rded Safety 0 10/04/2022 Utilities Answer Date Recorded In the past 12 months has th e electric, gas, oil, or water company threatened to shut off services in your home? 1 01/29/2024 Employment Answer Date Recorded Stress [...] Sign Reading Time Taken Comments Blood Pressure 109/74 12/01/2024 3:34 PM EDT Pulse 88 12/01/2024 3:34 PM EDT Temperature 36.9 C (98.5 F) 12/01/2024 3:34 PM EDT Respiratory Rate 20 12/01/2024 3:34 PM EDT Oxygen Saturation 97% 06/12/2024 9:48 AM EST Inhaled Oxygen Concentration - - Weight 85.7 kg (189 lb) 12/01/2024 3:34 PM EDT Height 162.6 cm (5' 4 ) 12/01/2024 3:34 PM EDT Body Mass Index 32.44 12/01/2024 3:34 PM EDT Plan of Treatment Health Maintenance Due Date Last Done Comments Anxiety Screening 1994 HPV Screening 1994 Imm-Pneumococcal (1 of 2 - PCV) 2013 [id number] () 03/02/2024 021, 06/09/2021 Diabetes Screening 03/31/2024 03/31/2021, 0 07/25/2019, 07/25/2019, Additional history exists Alcohol and Drug Screen 07/02/2024 01/29/20 24, 10/04/2022, 10/04/2022, Additional history exists Depression Annual Screen 07/02/2024 024, 07/28/2015, 05/25/2014 (Declined) Relationship Safety Screening/Counseling 01/28/2025 01/29/2024, 10/04/2022, 10/04/2022, Additional history exists Imm-Influenza (#1) 2025 07/10/2016, 0 07/28/2015, 05/25/2014 (Declined), Additional history exists Annual Wellness (Adult): Indicated (All Coverage) 06/12/2025 06/12/2024, 10/04/2022, 03/31/2021, Additional history exists Tobacco Screening 06/12/2025 06/12/2024, 03/31/2021 Lipid Screening 10/04/2025 10/04/2022, 03/04, 07/25/2019 Hypertension Screening (#1) 12/01/2025 Pap Smear 10/15/2027 10/14/2024, 06/02/2021 Cervical Cancer Screening 10/14/2029 Pap + HPV 10/14/2029 10/14/2024 Imm-DTaP/Tdap/Td (9 - Td or Tdap) 06/12/2034 06/12/2024, 10/30/2013, 03/14/2007, Additional history exists Imm-Hepatitis B Completed 10/29/1996, 12/31, 1994 HIV Screening Completed 03/31/2021, 07/25/2019 Hepatitis C Screening Completed 03/31/2021 Cervical Ablation/Cold-Knife Conization Discontinued Cervical Cryotherapy Discontinued Colposcopy Discontinued Endometrial Biopsy Discontinued Excision/Leep Discontinued HPV Genotyping Discontinued Vaginal Pap Discontinued Vulvoscopy Discontinued Procedures Procedure Name Priority Date/Time Associated Diagnosis Comments IMAGING SCANNED DOCUMENT 01/30/2025 3:00 AM EDT IMAGING SCANNED DOCUMENT 01/30/2025 3:00 AM EDT RADEX SHOULDER 1 VIEW Routine 01/30/2025 3:00 AM EDT Injury of right shoulder, initial encounter THINPREP IMAGING PAP, HPV MRNA E6/E7 RFLEX HPV 16,18/45 CT/NG Routine 10/14/2024 10:48 AM EDT Screening for HPV (human papillomavirus) LIPID PANEL Routine 10/04/2022 2:54 PM EDT Class 1 obesity without serious comorbidity with body mass index (BMI) of 32.0 to 32.9 in adult, unspecified obesity type Routine adult health maintenance HIV 1/2 AG & AB W/RFLX (4TH [...] Health Maintenance Results * IMAGING SCANNED DOCUMENT (01/30/2025 3:00 AM EDT) Only the most recent of2 resultswithin the time period is included. 01/30/2025 3:00 AM EDT us Castillo STAUFFER SCAN IMAGING Final Result * RADEX SHOULDER 1 VIEW (01/30/2025 3:00 AM EDT) 01/30/2025 3:00 AM EDT us Castillo STAUFFER IMG XRAY Edited Result - Final * THINPREP IMAGING PAP, HPV MRNA E6/E7 RFLEX HPV 16,18/45 CT/NG (10/14/2024 10:48 AM EDT) CHLAMYDIA TRACHOMATIS RNA, TMA NOT DETECTED NOT DETECTED [facility] NEISSERIA GONORRHOEAE RNA, TMA NOT DETECTED NOT DETECTED [facility] COMMENT [facility] CLINICAL INFORMATION See Note [facility] Comment:None given LMP See Note [facility] Comment:NONE GIVEN PREV. PAP See Note [facility] Comment:NONE GIVEN PREV. BX See Note [facility] Comment:NONE GIVEN SOURCE See Note [facility] Comment:None given STATEMENT OF ADEQUACY See Note [facility] Comment: Satisfactory for evaluation. Endocervical/transformation zone component present. INTERPRETATION/RESU LT See Note [facility] Comment: Cytology Results: Negative for intraepithelial lesion or malignancy. COMMENT See Note [facility] Comment: This Pap test has been evaluated with computer assisted technology. SOFTWARE DEVELOPMENT SPECIALIST See Note [email or web address] Comment: YP, CT(ASCP) CT screening location: [place] [address] COMMENT [facility] HPV MRNA E6/E7 Not Detected Not Detected [facility] Comment: Methodology: Beating Machine Operator-Mediated Amplification This assay detects E6/E7 viral messenger RNA (mRNA) from 14 high-risk HPV types (16,18,31,33,35,39,45,51,52,56,58,59,66,68). Cervical sources are required for HPV testing. If a vaginal source from a patient who has had a total hysterectomy with removal of cervix was submitted, please contact the testing laboratory for alternative testing options. For additional information, please refer to http://education.Yodo1/faq/XPW259x8 (This link if provided for information/ educational purposes only.) Swab Specimen from wound / Unknown 10/14/2024 10:48 AM EDT 10/15/2024 8:36 AM EDT Narrative [facility] - 10/16/2024 2:27 PM EDT EXPLANATORY NOTE: The Pap is a screening test for cervical cancer. It is not a diagnostic test and is subject to false negative and false positive results. It is most reliable when a satisfactory sample, regularly obtained, is submitted with relevant clinical findings and history, and when the Pap result is evaluated along with historic and current clinical information. The analytical performance characteristics of this assay, when used to test SurePath(TM) specimens have been determined by [employer]. The modifications have not been cleared or approved by the FDA. This assay has been validated pursuant to the CLIA regulations and is used for clinical purposes. For additional information, please refer to https://Chirply.Yodo1/faq/FFB225 (This link is being provided for information/ educational purposes only.) Jovanni Aparicio MD LAB - PATHOLOGY AND CYTOLOGY AM BULATORY Final Result [facility] [address] [address], [facility] [address] [place] [address] * (ABNORMAL) LIPID PANEL (10/04/2022 2:54 PM EDT) CHOLESTEROL, TOTAL 255(H) <200 mg/dL [email or web address] HDL CHOLESTEROL 48(L) > OR = 50 mg/dL [email or web address] TRIGLYCERIDES 273(H) <150 mg/dL [email or web address] Comment: If a non-fasting specimen was collected, consider repeat triglyceride testing on a fasting specimen if clinically indicated. Sunil et al. J. of Clin. Lipidol. 2015;9:129-169. LDL-CHOLESTEROL 162(H) 99 mg/dL (calc) [email or web address] Comment: Reference range: <100 Desirable range <100 mg/dL for primary prevention; <70 mg/dL for patients with CHD or diabetic patients with > or = 2 CHD risk factors. LDL-C is now calculated using the Victor Manuel-Ulises calculation, which is a validated novel method providing better accuracy than the Friedewald equation in the estimation of LDL-C. Victor Manuel SHEPPARD et al. GINNY. 2013;310(19): 2930-2767 (http://education.[employer]/faq/HNP042) CHOL/HDLC RATIO 5.3(H) <5.0 (calc) [facility] NON-HDL CHOLESTEROL 207(H) <130 mg/dL (calc) [facility] Comment: For patients with diabetes plus 1 major ASCVD risk factor, treating to a non-HDL-C goal of <100 mg/dL (LDL-C of <70 mg/dL) is considered a therapeutic option. Blood Blood / Unknown 10/04/2022 2 :54 PM EDT 10/04/2022 2:54 PM EDT Castillo STAUFFER LAB - BLOOD DRAW Final Result Performing Organization Address [facility] de Phone Number [facility] [address] [address], [facility] [address] [address] * HEPATITIS C AB W/RFLX HCV RNA, QT, RT PCR (03/31/2021 9:39 AM EDT) HEPATITIS C ANTIBODY NON-REACT SILVIA NON-REACT SILVIA [email or web address] SIGNAL TO CUT-OFF 0.01 <1.00 [facility] Comment: HCV antibody was non-reactive. There is no laboratory evidence of HCV infection. In most cases, no further action is required. However, if recent HCV exposure is suspected, a test for HCV RNA (test code 36440) is suggested. For additional information please refer to http://education.Yodo1/faq/SUN15i5 (This link is being provided for informational/ educational purposes only.) Blood Blood / Unknown 03/31/2021 9 :39 AM EDT 03/31/2021 9:41 AM EDT Nelli Barnes MOLDING PRESS OPERATOR-C LAB - BLOOD DRAW Edited Resu lt - Final Performing Organization Address [facility] Co de Phone Number [facility] [address] [address], [employer] [address],[facility] [place] [address] * HIV 1/2 AG & AB W/RFLX (4TH GEN) (03/31/2021 9:39 AM EDT) HIV AG/AB, 4TH GEN NON-REAC TIVE NON-REAC TIVE [email or web address] Comment: HIV-1 antigen and HIV-1/HIV-2 antibodies were not detected. There is no laboratory evidence of HIV infection. PLEASE NOTE: This information has been disclosed to you from records whose confidentiality may be protected by state law. If your state requires such protection, then the state law prohibits you from making any further disclosure of the information without the specific written consent of the person to whom it pertains, or as otherwise permitted by law. A general authorization for the release of medical or other information is NOT sufficient for this purpose. For additional information please refer to http://education.Yodo1/faq/VIY473 (This link is being provided for informational/ educational purposes only.) The performance of this assay has not been clinically validated in patients less than 2 years old. Blood Blood / Unknown 03/31/2021 9 :39 AM EDT 03/31/2021 9:41 AM EDT Nelli Barnes MOLDING PRESS OPERATOR-C LAB - BLOOD DRAW Final Resul t [facility] [address] [address], [email or web address] [address] [address] * COMPREHENSIVE METABOLIC PANEL (03/31/2021 9:39 AM EDT) GLUCOSE 80 65 - 99 mg/dL [email or web address] Comment: Fasting reference interval UREA NITROGEN (BUN) 11 7 - 25 mg/dL [email or web address] CREATININE (blood) 0.87 0.50 - 1.10 mg/dL [email or web address] GFR ESTIMATED 92 > OR = 60 mL/min/[address] [email or web address] EGFR 107 > OR = 60 mL/min/[address] [email or web address] BUN/CREATININE RATIO NOT APPLICABLE 6 - 22 [facility] SODIUM 135 135 - 146 mmol/L [facility] POTASSIUM 4.4 3.5 - 5.3 mmol/L [facility] CHLORIDE 102 98 - 110 mmol/L [facility] CARBON DIOXIDE 25 20 - 32 mmol/L [facility] CALCIUM 9.7 8.6 - 10.2 mg/dL [facility] PROTEIN, TOTAL 7.6 6.1 - 8.1 g/dL [facility] ALBUMIN 4.4 3.6 - 5.1 g/dL [facility] GLOBULIN 3.2 1.9 - 3.7 g/dL (calc) [facility] ALBUMIN/GLOBUL IN RATIO 1.4 1.0 - 2.5 (calc) [facility] BILIRUBIN, TOTAL 0.3 0.2 - 1.2 mg/dL [facility] ALKALINE PHOSPHATASE 51 31 - 125 U/L [facility] AST 16 10 - 30 U/L [facility] ALT 16 6 - 29 U/L [facility] Blood Blood / Unknown 03/31/2021 9 :39 AM EDT 03/31/2021 9:41 AM EDT Nelli Barnes MOLDING PRESS OPERATOR-C LAB - BLOOD DRAW Edited Resu lt - Final [facility] [address] [address], [email or web address] [address] [address] from Last 3 Months or Most Recently Relevant to Health Maintenance Insurance [employer] Member Subscriber Plan / Payer (Ef fective 2024-Present) Name:Elissa Medina Relation to Subscriber:Self Name:Angelaindy Adamurmila Payer ID:[id number] Group ID:Not on file Type:Indemnity Address: [facility] [address] [place] [address] Care Teams Carbon Sequestration Plant Manager Relationship Specialty Start Date End Date Castillo Olivier PA [address] [place] [address] PCP - General FAMILY MEDICINEXIOMY 07/28/22
== END 2025-02-09 15:05 | disposition home or self-care (01) ==
LOC: HO.HOS 14:43
PROVIDERS: PCP Physician Assistant; Visit Provider Orthopaedic Surgery
DX: M23.90 Unspecified internal derangement of unspecified knee (principal)
CPT/HCPCS: 99213

== ENCOUNTER 2025-06-10 13:06 | Outpatient (AMB) | payer OTHER, SELFPAY ==
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
[2025-06-10 13:17] VITALS: BMI 32.1
== END 2025-06-10 13:48 | disposition home or self-care (01) ==
LOC: HO.HOS 13:06
PROVIDERS: PCP Physician Assistant; Visit Provider Physician Assistant
DX: M75.81 Other shoulder lesions, right shoulder (principal)
CPT/HCPCS: 99214; G2211